=== PATIENT | male | born 2000 | race Hispanic/Latino ===

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

== ENCOUNTER 2021-07-07 18:06 | Emergency (ER) | payer MEDICAID ==
[~2021-07-07] VITALS: Ht 165.1 cm; Wt 68.0 kg
[2021-07-07 18:12] VITALS: BP 142/73
[2021-07-07] MEDS ORDERED: CLOT15CR23 TP (18:29)
[2021-07-07] MEDS ORDERED: FLUT16H NS (18:29)
== END 2021-07-07 18:41 | disposition home or self-care (01) ==
LOC: EDH 18:06
DX: J34.89 Other specified disorders of nose and nasal sinuses (principal); B35.4 Tinea corporis

== ENCOUNTER 2021-08-14 20:57 | Emergency (ER) | payer MEDICAID ==
[~2021-08-14] VITALS: Ht 175.3 cm; Wt 86.6 kg
[~2021-08-14 20:57] MED LIST: CLOT15CR23 TP; FLUT16H NS
[2021-08-14] MEDS ORDERED: IBUPROFEN 800 MG TAB PO ONE (21:30)
[2021-08-14] MEDS ORDERED: ACETAMINOPHEN 500 MG TABLET PO ONE (21:30)
[2021-08-14 21:43] LABS: BASOPHILS % (AUTO) 0.3 % (0.0-5.0); HEMATOCRIT 43.7 % (42-54); LYMPHOCYTES % (AUTO) 33.9 % (21.0-51.0); MEAN CORPUSCULAR HGB CONC 34.8 g/dL (32.0-36.0); MONOCYTES % (AUTO) 9.3 % (3.0-13.0); NEUTROPHILS % (AUTO) 55.2 % (40.0-77.0); PLATELET COUNT (AUTO) 275 K/uL (130-400); RED BLOOD CELL COUNT(AUTO) 4.91 MIL/uL (4.50-6.20); RED CELL DISTRIBUTION WIDTH 12.5 % (11.0-15.5); WHITE BLOOD COUNT (AUTO) 6.8 K/uL (4.8-10.8)
[2021-08-14 21:53] LABS: POTASSIUM 4.3 mmol/L (3.5-5.1)
[2021-08-14 21:58] LABS: ALBUMIN 4.4 g/dL (3.5-5.0); BILIRUBIN,TOTAL 0.6 mg/dL (0.2-1.0); TOTAL PROTEIN, SERUM 8.3 g/dL (6.0-8.3)
[2021-08-14] MEDS ORDERED: ACET325C6 PO (22:58)
[2021-08-14 23:09] VITALS: BP 127/82
== END 2021-08-14 23:11 | disposition home or self-care (01) ==
LOC: EDH 20:57
DX: R51.9 Headache, unspecified (principal); Z20.822 Contact with and (suspected) exposure to COVID-19; F41.9 Anxiety disorder, unspecified; J45.909 Unspecified asthma, uncomplicated; F32.A Depression, unspecified; Z79.899 Other long term (current) drug therapy
CPT/HCPCS: 36415; 80053; 85025; 87635; 99283; C9803

== ENCOUNTER 2021-09-11 07:28 | Emergency (ER) | payer MEDICAID ==
[~2021-09-11] VITALS: Ht 167.6 cm; Wt 88.9 kg
[~2021-09-11 07:28] MED LIST changes: +ACET325C6 PO
[2021-09-11] MEDS ORDERED: IBUPROFEN 600 MG TABLET PO ONE (08:00)
[2021-09-11 08:18] LABS: APPEARANCE,URINE CLEAR (CLEAR); BILIRUBIN,URINE NEGATIVE (NEGATIVE); COLOR,URINE YELLOW (YELLOW); GLUCOSE, URINE (UA) NEGATIVE (NEGATIVE); KETONES,URINE NEGATIVE (NEGATIVE); LEUKOCYTE ESTERASE ,URINE NEGATIVE (NEGATIVE); NITRATE,URINE NEGATIVE (NEGATIVE); OCCULT BLOOD,URINE NEGATIVE (NEGATIVE); PROTEIN,URINE NEGATIVE (NEGATIVE); UROBILINOGEN,URINE 0.2 mg/dL (0.2-1.0)
[2021-09-11] MEDS ORDERED: NAPR-1196 PO (09:18)
[2021-09-11] MEDS ORDERED: FLUT16H NASAL (09:18)
[2021-09-11 09:45] VITALS: BP 129/78
== END 2021-09-11 09:46 | disposition home or self-care (01) ==
LOC: EDH 07:28
DX: U07.1 COVID-19 (principal); J45.909 Unspecified asthma, uncomplicated; F41.9 Anxiety disorder, unspecified; F31.9 Bipolar disorder, unspecified; Z79.1 Long term (current) use of non-steroidal anti-inflammatories (NSAID)
CPT/HCPCS: 99283; 87635; 87880; 87804 ×2; 81003; C9803